=== PATIENT | male | born 1985 | race Caucasian/White ===

== ENCOUNTER 2016-07-10 10:14 | Outpatient (CLI) | payer OTHER ==
[2015-11-19 13:41] VITALS: BP 143/85
--- NOTE | 2016-07-10 11:27 | Diagnostic Imaging Report ---
[facility] [id number] Formerly [facility] [address] [id number] Report Submission Date: July 10, 2016 11:25:01 AM CDT Patient Study Name: RAMÍREZ HILL Date: July 10, 2016 10:24:01 AM CDT Modality Type: MR Gender: M Description: MRI LUMBAR SPINE W/O CONTRAST : 81 Institution: [facility] Physician: HAYLIE BROWN MRI lumbar spine without contrast Clinical history: Chronic low back pain Technique: Multiplanar multisequence MR imaging was performed through the lumbar spine. Findings: The alignment of the lumbar spine is normal. The vertebral body height are maintained. No tear of the marrow lesions are identified. There is disc degeneration at L5-S1 with noted type II degenerative endplate changes. Conus medullaris terminates at L1 and is unremarkable. There is a small fissure in the posterior fibrosis at L5-S1 with a small central disc protrusion. The central disc protrusion measures 3 mm, which results in mild left subarticular zones stenosis. No central spinal or neural foraminal stenosis. Remaining disc levels are unremarkable without central spinal or neural foraminal stenosis. Impression: At L5-S1, there is a small disc protrusion with disc degeneration and a fissure in the posterior annulus fibrosis. The protrusion results in mild left subarticular zone stenosis. Electronically signed on July 10, 2016 11:25:01 AM CDT by: Danny GALEAS
== END 2016-07-10 10:29 | disposition home or self-care (01) ==
LOC: RAD 10:14
PROVIDERS: ATTEND Physician Assistant
DX: M54.5 Low back pain (principal)
CPT/HCPCS: 72148

== ENCOUNTER 2016-07-11 13:53 | Outpatient (CLI) | payer OTHER ==
[2015-11-19 13:41] VITALS: BP 143/85
--- NOTE | 2016-07-13 13:08 | PAIN CLINIC PROGRESS NOTES ---
REASON FOR VISIT: Mr. Mcbride follows up today with his MRI. He has notable L5-S1 disk protrusion, broad based, associated with facet ligamentum flavum hypertrophy. He has some subarticular stenosis at L5-S1, otherwise, some modic changes and very likely this is the underlying cause for his chronic low back pain. I have told him he has discogenic low back pain and if it became severe, I would recommend an epidural steroid injection versus a caudal. PLAN: At this point, he wishes to stay on tramadol and I will start him on some tizanidine. I will give him 2 refills and follow him up on an as-needed basis. I recommend an LESI if symptoms should worsen. Dr. Rodas, thank you again for allowing me to take part in the care of this nice gentleman. I appreciate the opportunity to take part in the care of your patients. cc: Dr. Nguyễn GALEAS
== END 2016-07-11 13:54 ==
LOC: OUT 13:53
PROVIDERS: ATTEND Anesthesiology Pain Medicine
DX: M48.06 Spinal stenosis, lumbar region (principal)
CPT/HCPCS: 99203

== ENCOUNTER 2017-04-07 19:12 | Emergency (ER) | payer OTHER ==
--- NOTE | 2017-04-07 19:28 | ED Physician Documentation ---
Sore Throat/Dental Pain - HISTORIAN Historian: patient - HPI Chief Complaint: Dental Pain Onset: days ago Context: Dental Caries, Possible Infection Worsened By: heat, cold Further Comments: no - ROS CONST: no problems CVS/RESP: none GI/: denies: nausea, vomiting MS/SKIN/LYMPH: denies: muscle aches, rash NEURO/PSYCH: none. denies: headache - PAST HX Past History: dental surgery, gum disease Other History: none Allergies/Adverse Reactions: Allergies Allergy/AdvReac Type Severity Reaction Status Date / Time No Known Allergies Allergy Verified 04/07/17 19:21 Home Medications: Ambulatory Orders Medication Instructions Recorded Lorazepam [Ativan] 1 mg PO TID 04/07/17 Lurasidone HCl [Latuda] 40 mg PO DAILY 04/07/17 - SOCIAL HX Smoking History: non-smoker Alcohol Use: none Drug Use: none - FAMILY HX Family History: Yes - VITAL SIGNS Vital Signs: Vital Signs Temp Pulse Resp BP Pulse Ox 143/85 11/19/15 14:28 - REVIEWED ASSESSMENTS Nursing Assessment Reviewed: Yes Vitals Reviewed: Yes Dental Pain Physical Exam - EXAM General Appearance: no acute distress, alert Head/Neck: head nml inspection Eyes: eyes nml inspection Mouth/Throat: lips nml, pharynx nml, no air way problems, no thrush, dental tenderness, gum swelling around teeth, widespread dental decay, other (multiple cavities) Ear/Nose: nml inspection Respiratory: no resp. distress Extremities: non-tender Skin: warm/dry, normal color Neuro/Psych: No: weakness, numbness, anxiety, depression Discharge Clincal Impression: Acute apical periodontitis, Dental caries Referrals: Nguyễn Rodas MD [Primary Care Provider] - 2 Days Condition: Stable Disposition: HOME, SELF-CARE Decision to Admit: NO Date of Decison to Admit: 04/07/17 Decision Time: 19:28
[2017-04-07 19:54] VITALS: BP 137/87
== END 2017-04-07 19:30 | disposition home or self-care (01) ==
LOC: ED 19:12
DX: K02.9 Dental caries, unspecified (principal); K05.20 Aggressive periodontitis, unspecified
CPT/HCPCS: 99282

== ENCOUNTER 2017-07-29 11:19 | Emergency (ER) | payer OTHER ==
[2017-07-29 11:32] VITALS: BP 136/75
--- NOTE | 2017-07-29 12:23 | ED Physician Documentation ---
General Adult - HISTORIAN Historian: patient - HPI Stated Complaint: Dental pain Chief Complaint: General Adult Additional Information: Dental pain x 2 days. Appointment in October to extract remaining teeth. On daily naproxen for chronic back pain. - ROS CONST: denies: fever - PAST HX Past History: none Allergies/Adverse Reactions: Allergies Allergy/AdvReac Type Severity Reaction Status Date / Time No Known Allergies Allergy Verified 07/29/17 11:32 Home Medications: Ambulatory Orders Medication Instructions Recorded Lorazepam [Ativan] 1 mg PO TID 04/07/17 Lurasidone HCl [Latuda] 40 mg PO DAILY 04/07/17 Acetaminophen with Codeine 1 each PO Q4H PRN #20 tablet 07/29/17 [Tylenol with Codeine #3 Tablet] Amoxicillin 500 mg PO Q8H #30 capsule 07/29/17 Loratadine [Allergy Relief] 10 mg PO DAILY 07/29/17 Naproxen [Naprosyn] 500 mg PO BID 07/29/17 - SOCIAL HX Smoking History: cigarettes (1/2 PPD) - FAMILY HX Family History: No - VITAL SIGNS Vital Signs: Vital Signs Temp Pulse Resp BP Pulse Ox 99.1 F 67 18 136/75 97 07/29/17 11:42 07/29/17 11:42 07/29/17 11:42 07/29/17 11:42 07/29/17 11:42 - REVIEWED ASSESSMENTS Nursing Assessment Reviewed: Yes Vitals Reviewed: Yes General Adult Physical Exam - PHYSICAL EXAM GENERAL APPEARANCE: mild distress EENT: eye inspection normal, ENT inspection normal (except very poor dentition. Some swelling righ mandible. No discreet abscess palpable. R mandibuar molars badly decayed.) NECK: normal inspection, lymphadenopathy (fullness below right ear. ) RESPIRATORY: breath sounds normal CVS: reg rate & rhythm, heart sounds normal BACK: normal inspection SKIN: warm/dry, normal color EXTREMITIES: normal range of motion (gait and stance) NEURO: CN's nml as tested, motor nml, sensation nml, cognition normal Discharge Clincal Impression: Dental caries Prescriptions: Acetaminophen with Codeine [Tylenol with Codeine #3 Tablet] 1 each PO Q4H PRN # 20 tablet PRN Reason: Pain Amoxicillin 500 mg PO Q8H #30 capsule Referrals: Primary Doctor,No [Primary Care Provider] - 2 Days Condition: Good Disposition: 01 HOME, SELF-CARE Decision to Admit: NO Decision Time: 12:00
== END 2017-07-29 11:42 | disposition home or self-care (01) ==
LOC: ED 11:19
DX: K02.9 Dental caries, unspecified (principal)
CPT/HCPCS: 99282

== ENCOUNTER 2017-10-08 07:18 | Emergency (ER) | payer OTHER ==
--- NOTE | 2017-10-08 07:31 | ED Physician Documentation ---
General Adult - HISTORIAN Historian: patient - HPI Stated Complaint: dental pain Chief Complaint: General Adult Onset: days ago Timing: still present Severity: moderate Further Comments: yes (Pt is a 32 yo male with dental pain. Pain began this am. Pt is planning to see dentist. No fever.) - ROS CONST: no problems EYES/ENT: other (dental pain) CVS/RESP: none GI/: none MS/SKIN/LYMPH: none NEURO/PSYCH: other (anxiety) - PAST HX Past History: other (anxiety, HTN, seizures) Allergies/Adverse Reactions: Allergies Allergy/AdvReac Type Severity Reaction Status Date / Time No Known Allergies Allergy Verified 10/08/17 07:33 Home Medications: Ambulatory Orders Medication Instructions Recorded Lorazepam [Ativan] 1 mg PO TID 04/07/17 Lurasidone HCl [Latuda] 40 mg PO DAILY 04/07/17 Acetaminophen with Codeine 1 each PO Q4H PRN #20 tablet 07/29/17 [Tylenol with Codeine #3 Tablet] Loratadine [Allergy Relief] 10 mg PO DAILY 07/29/17 Naproxen [Naprosyn] 500 mg PO BID 07/29/17 - SOCIAL HX Smoking History: cigarettes - FAMILY HX Family History: No - VITAL SIGNS Vital Signs: Vital Signs Temp Pulse Resp BP Pulse Ox 136/75 07/29/17 11:42 - REVIEWED ASSESSMENTS Nursing Assessment Reviewed: Yes Vitals Reviewed: Yes Progress - Progress Progress: Rx Keflex 500 mg. Take one every 8 hours for 10 days. Rx [place] (5/325). Take one or two every 4 to 6 hours as needed for moderate to severe pain. #15 Follow up with dentist. General Adult Physical Exam - PHYSICAL EXAM GENERAL APPEARANCE: moderate distress EENT: pharynx normal, other (poor dentition; caries, tenderness upper R) RESPIRATORY: no resp distress CVS: reg rate & rhythm BACK: normal inspection SKIN: warm/dry, normal color EXTREMITIES: non-tender, normal range of motion, no evidence of injury NEURO: oriented X3, motor nml, sensation nml Discharge Clincal Impression: dental pain Referrals: Primary Doctor,No [Primary Care Provider] - Condition: Good Disposition: 01 HOME, SELF-CARE Decision to Admit: NO Decision Time: 07:40
[2017-10-08 07:59] VITALS: BP 133/84
[2017-10-09] MEDS ORDERED: PHARMACY KEY 1 EACH EACH MC ONE (15:25)
== END 2017-10-08 07:45 | disposition home or self-care (01) ==
LOC: ED 07:18
DX: K08.89 Other specified disorders of teeth and supporting structures (principal)
CPT/HCPCS: 99282

== ENCOUNTER 2017-11-29 06:27 | Emergency (ER) | payer OTHER ==
[2017-11-29] MEDS ORDERED: Lidocaine 2%Visc 15ml 20 MG/ML UDC PO ONE (06:43)
[2017-11-29] MEDS ORDERED: ACETAMINOPHEN 160 MG/5 ML 60ML BOTTLE PO ONE (06:44)
[2017-11-29 06:45] VITALS: BP 145/94
[2017-11-29] MEDS ORDERED: ACETAMINOPHEN ORAL SOLUTION 325 MG/10.15 ML CUP ONE (06:47)
--- NOTE | 2017-11-29 06:50 | ED Physician Documentation ---
Sore Throat/Dental Pain - HISTORIAN Historian: patient - HPI Stated Complaint: Right jaw swelling and pain Chief Complaint: Dental Pain Additional Information: intro self as [employer]. Pt presents to the ED with Right jaw swelling and dental pain 09/12. he reports he has dental appt 12/13/17. pt reports he has several teeth that need to be pulled due to decay. denies other symptoms/complaints. Onset: other (chronic 2 weeks. ) Context: Abscess, Dental Caries Associated Symptoms: moderate. denies: fever, chills, sore throat - ROS CONST: no problems CVS/RESP: none. denies: chest pain, shortness of breath GI/: denies: problems urinating, nausea, vomiting MS/SKIN/LYMPH: denies: muscle aches, rash NEURO/PSYCH: none. denies: headache - PAST HX Past History: gum disease Other History: none Allergies/Adverse Reactions: Allergies Allergy/AdvReac Type Severity Reaction Status Date / Time No Known Allergies Allergy Verified 11/29/17 06:41 - SOCIAL HX Smoking History: less than 1 pack/day Alcohol Use: none - FAMILY HX Family History: Yes (daughter DM1) - VITAL SIGNS Vital Signs: Vital Signs Temp Pulse Resp BP Pulse Ox 98.0 F 96 H 20 145/94 94 11/29/17 06:30 11/29/17 06:30 11/29/17 06:30 11/29/17 06:30 11/29/17 06:30 - REVIEWED ASSESSMENTS Nursing Assessment Reviewed: Yes Vitals Reviewed: Yes ED Results Lab/Radiology - Orders Orders: ED Orders Category Date Time Status Acetaminophen [Tylenol] Med 11/29/17 06:44 Once 160 mg PO NOW ONE Lidocaine 2%Visc 15ml [Xylocaine] Med 11/29/17 06:43 Once 15 mg PO NOW ONE Dental Pain Physical Exam - EXAM General Appearance: no acute distress Head/Neck: head nml inspection, trachea midline Eyes: eyes nml inspection Mouth/Throat: voice nml, no drooling, no air way problems, dental tenderness, gum swelling around teeth, widespread dental decay, other (right jaw edema) Ear/Nose: nml inspection Respiratory: no resp. distress CVS: reg. rate & rhythm Neuro/Psych: none Discharge Clincal Impression: Abscess, dental Referrals: Primary Doctor,No [Primary Care Provider] - 2 Days Additional Instructions: Follow up with dentist MAYUR follow up with primary care this week Clindamycin 300 mg three times a day for 10 days Return if worse Tylenol/lidocaine cotton balls. One cotton ball every 4 hours while awake. tylenol/ibuprofen for pain Condition: Good Disposition: 01 HOME, SELF-CARE Decision to Admit: NO Date of Decison to Admit: 11/29/17 Decision Time: 06:51
== END 2017-11-29 07:00 | disposition home or self-care (01) ==
LOC: ED 06:27
DX: K04.7 Periapical abscess without sinus (principal)
CPT/HCPCS: 99283

== ENCOUNTER 2019-02-10 19:33 | Emergency (ER) | payer SELFPAY ==
--- NOTE | 2019-02-10 19:47 | ED Physician Documentation ---
General Adult - HISTORIAN Historian: patient - HPI Chief Complaint: General Adult (Sinus congestion, wheezing) Additional Information: 33 year old male presents with shortness of breath; states that he is out of his albuterol inhaler; quit smoking about 6 months ago; he c/o sinus congestion, runny nose, post nasal drainage that started earlier this morning. Denies any f/c/n/v/d. Onset: hours Timing: still present Severity: mild Modifying Factors: Out of albuterol; - ROS CONST: no problems EYES/ENT: sore throat, nasal drainage, nasal congestion CVS/RESP: shortness of breath, cough GI/: none MS/SKIN/LYMPH: none NEURO/PSYCH: denies: headache - PAST HX Past History: asthma Other History: none Surgeries/Procedures: none Immunizations: UTD Allergies/Adverse Reactions: Allergies Allergy/AdvReac Type Severity Reaction Status Date / Time No Known Allergies Allergy Verified 11/29/17 06:41 - SOCIAL HX Smoking History: quit less than 1 year Alcohol Use: none Drug Use: none - FAMILY HX Family History: No - VITAL SIGNS Vital Signs: Vital Signs Temp Pulse Resp BP Pulse Ox 145/94 11/29/17 07:00 - REVIEWED ASSESSMENTS Nursing Assessment Reviewed: Yes Vitals Reviewed: Yes ED Results Lab/Radiology - Orders Orders: ED Orders Category Date Time Status Albuterol Sulfate [Ventolin Hfa] Med 02/10/19 19:43 Once 2 puff IH NOW ONE Amoxicillin/Potassium Clav [AUGMENTIN 875MG/125 mg Med 02/10/19 19:43 Once Tablet] 1 each PO NOW ONE General Adult Physical Exam - PHYSICAL EXAM GENERAL APPEARANCE: mild distress EENT: eye inspection normal, ENT inspection normal, pharynx normal, no signs of dehydration, GEOVANNI NECK: normal inspection, supple RESPIRATORY: wheezes CVS: heart sounds normal ABDOMEN: soft, normal bowel sounds SKIN: warm/dry, normal color EXTREMITIES: non-tender, normal range of motion NEURO: oriented X3, motor nml, sensation nml, mood/affect nml, cognition normal Discharge Clincal Impression: Sinus infection, Asthma Referrals: Primary Doctor,No [Primary Care Provider] - 2 Days Additional Instructions: Take Augmentin 875 mg by mouth twice a day for 10 days Use albuterol 2 puffs every 4 hours as needed for shortness of breath or wheezing Follow up with PCP next week for re-evaluation Condition: Good Disposition: 01 HOME, SELF-CARE Decision to Admit: NO Decision Time: 19:52
[2019-02-10] MEDS: ALBUTEROL 90MCG/PUFF INHALER IH ONE (19:54)
[2019-02-10] MEDS: AMOXICILLIN/POT 875/125 1 EACH PO ONE (19:54)
[2019-02-10 20:17] VITALS: BP 134/86
== END 2019-02-10 19:53 | disposition home or self-care (01) ==
LOC: ED 19:33
DX: J45.909 Unspecified asthma, uncomplicated (principal); J32.9 Chronic sinusitis, unspecified; Z87.891 Personal history of nicotine dependence